=== PATIENT | female | born 1995 | race Caucasian/White ===

== ENCOUNTER 2020-04-17 16:24 | Emergency (ER) | payer OTHER, SELFPAY ==
[2020-04-17 16:37] VITALS: BP 145/77; PULSE 95; RESP 20; TEMP 37.2; O2SAT 97; BMI 35.4
--- NOTE | 2020-04-17 17:57 | ECG_ITS ---
Test Reason : [id number] Blood Pressure : / mmHG Vent. Rate : 083 BPM Atrial Rate : 083 BPM P-R Int : 162 ms QRS Dur : 090 ms QT Int : 374 ms P-R-T Axes : 068 048 039 degrees QTc Int : 439 ms Normal sinus rhythm Normal ECG No previous ECGs available Referred By: Trina Fontenot Electronically Signed By:RENATO DASH
--- NOTE | 2020-04-17 17:57 | XR_ITS ---
EXAMINATION: XR CHEST CLINICAL INFORMATION: Chest pain. Shortness of breath. Covid positive. COMPARISON: None TECHNIQUE: Frontal view of the chest was obtained. FINDINGS: No significant abnormality is noted involving the heart, lungs, mediastinum, bony thorax or soft tissues. The lungs are clear with no focal consolidation or other abnormality demonstrated. XR/XR chest 1V IMPRESSION: Unremarkable examination.
[2020-04-17 18:00] VITALS: BP 138/68; PULSE 88; RESP 16; TEMP 37.2; O2SAT 99
--- NOTE | 2020-04-17 18:11 | ED.URI ---
HPI - URI/Sore Throat General Chief Complaint: Upper Respiratory Symptoms Stated Complaint: CHEST PAIN Time Seen by Provider: 04/17/20 17:57 Source: patient Mode of arrival: ambulatory History of Present Illness HPI Narrative: 24-year-old female with a past medical history of asthma, COVID-19 positive last week, presenting to the ED complaining of worsening SOB, dry cough, and chest pressure since Tuesday. Also reports diarrhea, decreased p.o. intake, and low grade fevers. denies abd pain, N/V, recent travel, sore throat. MD elicited complaint: fever and cough Related Data Previous Rx's Medication Instructions Recorded albuterol sulfate 2 puff INHALATION Q4-6H PRN #6.7 g 04/17/20 azithromycin See Rx Instructions .ROUTE 04/17/20 .COMPLEX #6 tab Allergies Allergy/AdvReac Type Severity Reaction Status Date / Time No Known Allergies Allergy Verified 04/17/20 16:40 [No Known Allergies*] Review of Systems Review of Systems: Constitutional: No Weight loss, No Fever, No Chills ENT/Mouth: No Ear Pain, No Nasal Congestion, No Sinus Pain, No Hoarseness, No sore throat, No Rhinorrhea Cardiovascular: + Chest Pain, + SOB, + Dyspnea on Exertion, No Orthopnea, No Edema, No Palpitations Respiratory: + Cough, No Sputum, No Wheezing Gastrointestinal: No Nausea, No Vomiting, + Diarrhea, No Constipation, No Abdominal pain Genitourinary: No irregular bleeding, No Dysuria, No Urinary Frequency, No Hematuria Musculoskeletal: No joint pain, + Myalgias, No Joint Swelling Skin: No Skin Lesions, No rash Yes all other systems are reviewed and are negative [facility] Past Medical History Attestation statement: The following information was validated with the patient. Social History Social History Alcohol intake: current Alcohol intake frequency: holidays/special occasions only Smoking Status: Never smoker Use of substances other than those prescribed or required for medical reasons: No Advance Directives: No Advance Directives Information Provided: No Physical Exam Vital Signs: Vital Signs: Last Vital Signs Temp 98.9 F 04/17/20 18:00 Pulse 88 04/17/20 18:00 Resp 16 04/17/20 18:00 BP 138/68 04/17/20 18:00 Pulse Ox 99 04/17/20 18:00 Body Mass Index 35.4 Const: General: cooperative and healthy appearing Orientation/consciousness: patient oriented x3 Limitations: no limitations HENMT: Head: Yes normal to inspection Ears: hearing grossly normal bilaterally General nose exam: Normal external nose present Face and sinus: Yes normal facial exam Eyes: General: appearance normal, both eyes and all related structures EOM: EOMs intact bilaterally Neck: Neck: Yes normal visual inspection and Yes no meningeal signs Resp: Effort & Inspection: normal respiratory effort Auscultation: clear to auscultation bilaterally, no rales, no rhonchi and no wheezes Cardio: Rate: regular rate Heart sounds: S1 normal heart sound present and S2 normal heart sound present GI: Inspection: Yes normal to inspection Palpation (GI): Soft to palpation and nontender Skin: Rashes: no rashes Wounds: no wounds Neuro: General: patient oriented x3 and no meningeal signs Gait exam (Neuro): Normal gait present Extrem: Other: No LE edema or calf tenderness General: Yes normal to inspection Course Course Course Narrative: AST/ALT mildly elevated troponin negative, labs unremarkable CXR unremarkable MDM - URI/Sore Throat MDM Narrative Medical decision making narrative: 24-year-old female with a past medical history of asthma, COVID-19 + last week, presenting to the ED complaining of worsening SOB, dry cough, and chest pressure since Tuesday. On exam VSS, NAD/well-appearing, lungs CTA, no LE edema or calf tenderness. Concern for COVID-19/viral pneumonia vs ACS. Lower concern for PE without hypoxia or tachycardia. Plan: EKG, Labs, CXR, Albuterol, reassess Lab Data Attestation: I reviewed the patient's lab results. Result diagrams: 04/17/20 18:14 04/17/20 18:14 Labs: Lab Results 04/17/20 04/17/20 04/17/20 Range/Units 18:14 18:14 18:14 WBC 6.1 (4.8-10.8) X10*3/uL RBC 4.79 (4.20-5.50) X10*6/uL Hgb 13.0 (12.0-16.0) g/dl Hct 40.2 (37-47) % MCV 83.9 (80-98) fL MCH 27.1 (27.0-33.0) pg MCHC 32.3 (31.0-35.0) g/dl RDW 12.8 (11.0-16.0) % Plt Count 228 (160-400) X10*3/uL MPV 10.6 (9.4-12.3) fL Immature Gran % (Auto) 0.2 (0.0-0.4) % Neut % (Auto) 49.3 (45-73) % Lymph % (Auto) 40.6 H (20-40) % [place] % (Auto) 6.4 (2-11) % Eos % (Auto) 3.0 (0-4) % Baso % (Auto) 0.5 (0-2) % Lymph # (Auto) 2.5 (1.2-4.9) X10*3/uL [place] # (Auto) 0.4 (0.1-1.2) X10*3/uL Eos # (Auto) 0.2 (0.0-0.4) X10*3/uL Baso # (Auto) 0.0 (0.0-0.2) X10*3/uL Abs Immat Gran (auto) 0.01 (0.00-0.03) X10*3/uL Absolute Neuts (auto) 3.0 (2.0-8.3) X10*3/uL Absolute Nucleated RBC 0.000 (0.0-0.012) X10*3/uL Nucleated RBC % (auto) 0.0 (0.0-0.2) /100WBC Hold Blue Top SEE NOTE Sodium 139 (135-145) mmol/L Potassium 4.3 (3.3-5.1) mmol/l Chloride 102 (96-108) mmol/L Carbon Dioxide 29 (22-29) mmol/L Anion Gap 12 (12-20) BUN 8 L (9-16) mg/dL Creatinine 0.72 (0.5-1.4) mg/dL Estim Creat Clear Calc 127.7 Estimated GFR > 60 Random Glucose 130 H (60-115) mg/dL Calcium 9.1 (8.4-10.2) mg/dL Magnesium 1.8 (1.6-2.6) mg/dL Ferritin (10-122) ng/mL Total Bilirubin 0.2 (0.0-1.0) mg/dL Direct Bilirubin < 0.2 (0.0-0.5) mg/dL AST 34 H (5-31) U/L ALT 50 H (0-31) U/L Alkaline Phosphatase 57 (39-117) U/L Lactate Dehydrogenase (122-220) U/L Troponin I High Sens (<3.5-17.0) ng/L C-Reactive Protein (< or = 0.50) mg/dL B-Natriuretic Peptide (<100) pg/mL Total Protein 7.8 (6.5-8.0) g/dL Albumin 4.4 (3.5-5.0) g/dL Procalcitonin ng/mL 04/17/20 04/17/20 04/17/20 Range/Units 18:14 18:14 18:14 WBC (4.8-10.8) X10*3/uL RBC (4.20-5.50) X10*6/uL Hgb (12.0-16.0) g/dl Hct (37-47) % MCV (80-98) fL MCH (27.0-33.0) pg MCHC (31.0-35.0) g/dl RDW (11.0-16.0) % Plt Count (160-400) X10*3/uL MPV (9.4-12.3) fL Immature Gran % (Auto) (0.0-0.4) % Neut % (Auto) (45-73) % Lymph % (Auto) (20-40) % [place] % (Auto) (2-11) % Eos % (Auto) (0-4) % Baso % (Auto) (0-2) % Lymph # (Auto) (1.2-4.9) X10*3/uL [place] # (Auto) (0.1-1.2) X10*3/uL Eos # (Auto) (0.0-0.4) X10*3/uL Baso # (Auto) (0.0-0.2) X10*3/uL Abs Immat Gran (auto) (0.00-0.03) X10*3/uL Absolute Neuts (auto) (2.0-8.3) X10*3/uL Absolute Nucleated RBC (0.0-0.012) X10*3/uL Nucleated RBC % (auto) (0.0-0.2) /100WBC Hold Blue Top Sodium (135-145) mmol/L Potassium (3.3-5.1) mmol/l Chloride (96-108) mmol/L Carbon Dioxide (22-29) mmol/L Anion Gap (12-20) BUN (9-16) mg/dL Creatinine (0.5-1.4) mg/dL Estim Creat Clear Calc Estimated GFR Random Glucose (60-115) mg/dL Calcium (8.4-10.2) mg/dL Magnesium (1.6-2.6) mg/dL Ferritin 53 (10-122) ng/mL Total Bilirubin (0.0-1.0) mg/dL Direct Bilirubin (0.0-0.5) mg/dL AST (5-31) U/L ALT (0-31) U/L Alkaline Phosphatase (39-117) U/L Lactate Dehydrogenase 178 (122-220) U/L Troponin I High Sens < 3.5 (<3.5-17.0) ng/L C-Reactive Protein 0.44 (< or = 0.50) mg/dL B-Natriuretic Peptide < 10 (<100) pg/mL Total Protein (6.5-8.0) g/dL Albumin (3.5-5.0) g/dL Procalcitonin ng/mL 04/17/20 Range/Units 18:14 WBC (4.8-10.8) X10*3/uL RBC (4.20-5.50) X10*6/uL Hgb (12.0-16.0) g/dl Hct (37-47) % MCV (80-98) fL MCH (27.0-33.0) pg MCHC (31.0-35.0) g/dl RDW (11.0-16.0) % Plt Count (160-400) X10*3/uL MPV (9.4-12.3) fL Immature Gran % (Auto) (0.0-0.4) % Neut % (Auto) (45-73) % Lymph % (Auto) (20-40) % [place] % (Auto) (2-11) % Eos % (Auto) (0-4) % Baso % (Auto) (0-2) % Lymph # (Auto) (1.2-4.9) X10*3/uL [place] # (Auto) (0.1-1.2) X10*3/uL Eos # (Auto) (0.0-0.4) X10*3/uL Baso # (Auto) (0.0-0.2) X10*3/uL Abs Immat Gran (auto) (0.00-0.03) X10*3/uL Absolute Neuts (auto) (2.0-8.3) X10*3/uL Absolute Nucleated RBC (0.0-0.012) X10*3/uL Nucleated RBC % (auto) (0.0-0.2) /100WBC Hold Blue Top Sodium (135-145) mmol/L Potassium (3.3-5.1) mmol/l Chloride (96-108) mmol/L Carbon Dioxide (22-29) mmol/L Anion Gap (12-20) BUN (9-16) mg/dL Creatinine (0.5-1.4) mg/dL Estim Creat Clear Calc Estimated GFR Random Glucose (60-115) mg/dL Calcium (8.4-10.2) mg/dL Magnesium (1.6-2.6) mg/dL Ferritin (10-122) ng/mL Total Bilirubin (0.0-1.0) mg/dL Direct Bilirubin (0.0-0.5) mg/dL AST (5-31) U/L ALT (0-31) U/L Alkaline Phosphatase (39-117) U/L Lactate Dehydrogenase (122-220) U/L Troponin I High Sens (<3.5-17.0) ng/L C-Reactive Protein (< or = 0.50) mg/dL B-Natriuretic Peptide (<100) pg/mL Total Protein (6.5-8.0) g/dL Albumin (3.5-5.0) g/dL Procalcitonin 0.02 ng/mL Discharge Plan Discharge Clinical Impression: COVID-19 Patient Disposition: Home, Self-Care Instructions: COVID-19 (Coronavirus Disease 2019) (ED) Additional Instructions: Your blood work and chest x-ray were reassuring today in the ED Is otherwise in his antibiotic, take as prescribed Use albuterol inhaler as prescribed Call your doctor If you develop constant worsening chest pain, shortness of breath, or high fevers unresolved with Tylenol at home return to the ED CDC Guidelines for home isolation: - Stay away from others - WEAR A MASK if you are sick AND STAY HOME - Cover your mouth and nose with a tissue when you cough or sneeze. Dispose of tissues in a lined trash can and wash your hands immediately with soap and water for at least 20 seconds. If soap and water are not available, clean hands with alcohol-based hand emergency room physician that contains at least 60% alcohol. - Clean your hands often with soap and water for at least 20 seconds - Avoid touching your eyes, nose and mouth with unwashed hands - Do not share dishes, drinking glasses, cups, eating utensils, towels, or bedding with other people in your home. After using these items, wash them thoroughly with soap and water or put in the esthetician/spa coordinator. - Clean high-touch surfaces in your isolation area ( sick room and bathroom) every day; let a caregiver clean and disinfect high-touch surfaces in other areas of the home. Clean the area or item with soap and water or another detergent if it is dirty. Then, use a household disinfectant. - Limit contact with pets and animals: If you must care for a pet, wash your hands before and after interacting with them) Prescriptions: New albuterol sulfate 90 mcg/actuation HFA aerosol inhaler 2 puff inhalation Q4-6H PRN (Reason: shortness of breath or wheezing) Qty: 6.7 RF: 0 azithromycin 250 mg tablet See Rx Instructions .ROUTE .COMPLEX Qty: 6 RF: 0 Referrals: Gamaliel Raya MD [Primary Care Provider] - 2 days
[2020-04-17 18:38] LABS: Basophils Percent Auto 0.5 % (0-2); Eosinophils Absolute Auto 0.2 X10*3/uL (0.0-0.4); Hematocrit 40.2 % (37-47); Imm Gran Abs Auto 0.01 X10*3/uL (0.00-0.03); Imm Gran Pct Auto 0.2 % (0.0-0.4); Lymphocytes Absolute Auto 2.5 X10*3/uL (1.2-4.9); Lymphocytes Percent Auto 40.6 % (20-40); MANUAL DIFF FLAG NO; Mean Corpuscular HGB Conc 32.3 g/dl (31.0-35.0); Mean Corpuscular Hemoglobin 27.1 pg (27.0-33.0); Mean Corpuscular Volume 83.9 fL (80-98); Mean Platelet Volume 10.6 fL (9.4-12.3); Monocytes Absolute Auto 0.4 X10*3/uL (0.1-1.2); Monocytes Percent Auto 6.4 % (2-11); Neutrophils Percent Auto 49.3 % (45-73); Platelet Count 228 X10*3/uL (160-400); Red Blood Count 4.79 X10*6/uL (4.20-5.50); Red Cell Distribution Width 12.8 % (11.0-16.0); White Blood Count 6.1 X10*3/uL (4.8-10.8)
[2020-04-17] MEDS: Albuterol Sulfate 90 MCG 8 GM INHALER 4 PUFF INHALE (18:42)
--- NOTE | 2020-04-17 18:45 | PC.NURSE ---
pt states she has HX of asthma and has used inhalers in the past. She was able to use the inhaler with spacer with good inspiratory effort, though is coughing after use. Will continue to monitor
[2020-04-17 19:03] LABS: C Reactive Protein 0.44 mg/dL (< or = 0.50); Lactate Dehydrogenase 178 U/L (122-220)
[2020-04-17 19:04] LABS: Alanine Aminotransferase 50 U/L (0-31); Albumin Level 4.4 g/dL (3.5-5.0); Alkaline Phosphatase 57 U/L (39-117); Anion Gap 12 (12-20); Aspartate Amino Transferase 34 U/L (5-31); Bilirubin Direct < 0.2 mg/dL (0.0-0.5); Bilirubin Total 0.2 mg/dL (0.0-1.0); Blood Urea Nitrogen 8 mg/dL (9-16); Calcium 9.1 mg/dL (8.4-10.2); Carbon Dioxide 29 mmol/L (22-29); Chloride 102 mmol/L (96-108); Creatinine Clr Calc Pharmacy 127.7; Estimated Glomerular Filt Rate > 60; Glucose Random 130 mg/dL (60-115); Magnesium 1.8 mg/dL (1.6-2.6); Potassium 4.3 mmol/l (3.3-5.1); Sodium 139 mmol/L (135-145); Total Protein 7.8 g/dL (6.5-8.0)
[2020-04-17 19:08] LABS: B Type Natriuretic Peptide < 10 pg/mL (<100); Troponin-I High Sensitivity < 3.5 ng/L (<3.5-17.0)
[2020-04-17 19:22] LABS: Procalcitonin 0.02 ng/mL
[2020-04-17 19:25] LABS: Ferritin 53 ng/mL (10-122)
== END 2020-04-17 20:00 | disposition home or self-care (01) ==
PROVIDERS: Physician Assistant; Emergency Provider Emergency Medicine; PCP Internal Medicine
DX: U07.1 COVID-19 (principal); R07.89 Other chest pain; R05 Cough
CPT/HCPCS: 36415; 71045; 80048; 80076; 82728; 83615; 83735; 83880; 84145; 84484; 85025; 86140; 93005; 99284

== ENCOUNTER 2021-04-27 14:41 | Emergency (ER) | payer SELFPAY ==
--- NOTE | ~2021-04-27 | CT_ITS ---
EXAMINATION: CT HEAD WITHOUT CONTRAST CLINICAL INFORMATION: Facial numbness COMPARISON: None TECHNIQUE: Contiguous axial imaging was performed from the skull base to vertex without intravenous administration of contrast. This CT examination was performed using dose optimization techniques as appropriate, variously including the following: *Automated exposure control *Adjustment of mA and/or kV according to patient size (this includes techniques or standardized protocols for targeted exams where dose is matched to indication/reason for exam; i.e. extremities or head) *Use of iterative reconstruction technique DLP: 677 mGy-cm FINDINGS: There is no evidence of acute intracranial hemorrhage or territorial infarction. No abnormal mass effect or midline shift is seen. [place] to white matter differentiation is well preserved. No extra-axial fluid collections are identified. The ventricles are normal in size. There is no abnormal attenuation within the brain parenchyma. The osseous structures and soft tissues are normal. There is diffuse mucoperiosteal thickening bilateral ethmoid, sphenoid, right frontal and maxillary sinuses. The mastoid sinuses appears clear. CT/CT head/brain wo con IMPRESSION: No acute intracranial process seen. Chronic pansinusitis.
[2021-04-27 15:19] VITALS: BP 138/94; PULSE 89; RESP 20; TEMP 36.9; O2SAT 100; BMI 37.2
[2021-04-27 17:21] LABS: MANUAL DIFF FLAG NO
[2021-04-27 17:24] LABS: Basophils Percent Auto 0.3 % (0-2); Eosinophils Absolute Auto 0.2 X10*3/uL (0.0-0.4); Hematocrit 38.6 % (37.0-47.0); Hemoglobin 12.1 g/dl (12.0-16.0); Imm Gran Abs Auto 0.04 X10*3/uL (0.00-0.03); Imm Gran Pct Auto 0.3 % (0.0-0.4); Lymphocytes Absolute Auto 2.8 X10*3/uL (1.2-4.9); Lymphocytes Percent Auto 22.8 % (20-40); Mean Corpuscular HGB Conc 31.3 g/dl (31.0-35.0); Mean Corpuscular Hemoglobin 26.9 pg (27.0-33.0); Mean Corpuscular Volume 85.8 fL (80.0-98.0); Mean Platelet Volume 9.8 fL (9.4-12.3); Monocytes Absolute Auto 0.6 X10*3/uL (0.1-1.2); Monocytes Percent Auto 4.5 % (2-11); Neutrophils Absolute Auto 8.6 x10*3/uL (2.0-8.3); Neutrophils Percent Auto 70.1 % (45-73); Platelet Count 370 X10*3/uL (160-400); White Blood Count 12.3 X10*3/uL (4.8-10.8)
[2021-04-27 17:28] LABS: INTERNATIONAL NORM RATIO 1.2 (0.9-1.1); Prothrombin Time 13.7 SEC (9.9-13.0)
[2021-04-27 17:48] LABS: Anion Gap 11 (12-20); Blood Urea Nitrogen 11 mg/dL (9-16); Calcium 10.1 mg/dL (8.4-10.2); Carbon Dioxide 28 mmol/L (22-29); Chloride 104 mmol/L (96-108); Creatinine Clr Calc Pharmacy 121.5; Estimated Glomerular Filt Rate > 60; Glucose Random 100 mg/dL (60-115); Potassium 4.1 mmol/L (3.3-5.1); Sodium 139 mmol/L (135-145)
[2021-04-27 17:50] LABS: Alanine Aminotransferase 25 U/L (0-31); Albumin Level 4.5 g/dL (3.5-5.0); Alkaline Phosphatase 59 U/L (39-117); Aspartate Amino Transferase 19 U/L (5-31); Bilirubin Direct 0.2 mg/dL (0.0-0.5); Bilirubin Total 0.4 mg/dL (0.0-1.0)
[2021-04-27 18:27] LABS: COVID-19 Test Negative (Negative)
[2021-04-27 23:21] LABS: C Reactive Protein 2.17 mg/dL (< or = 0.50)
--- NOTE | 2021-04-27 23:58 | ED_ITS ---
HPI - Neuro Symptoms/Deficit General Chief Complaint: Neuro Symptoms/Deficit Stated Complaint: signs of stroke Time Seen by Provider: 04/27/21 23:03 Related Data Previous Rx's Medication Instructions Recorded albuterol sulfate 90 mcg/actuation 2 puff INHALATION Q4-6H PRN #6.7 g 04/17/20 aerosol inhaler azithromycin 250 mg tablet See Rx Instructions .ROUTE 04/17/20 .COMPLEX #6 tab prednisone 20 mg tablet 60 mg PO DAILY 6 Days #18 tab 04/28/21 Allergies Allergy/AdvReac Type Severity Reaction Status Date / Time No Known Allergies Allergy Verified 04/17/20 16:40 [No Known Allergies*] [facility] Past Medical History Medical History (Updated 04/28/21 @ 00:03 by Carrie Chin MD) Asthma History of prediabetes PCOS (polycystic ovarian syndrome) Surgical History (Updated 04/27/21 @ 15:24 by Alice Huerta) No pertinent past surgical history Social History Social History Alcohol intake: current Alcohol intake frequency: holidays/special occasions only Advance Directives: No Patient : No Physical Exam Vital Signs: Vital Signs: Last Vital Signs Temp 98.5 F 04/27/21 15:19 Pulse 89 04/27/21 15:19 Resp 20 04/27/21 15:19 BP 138/94 H 04/27/21 15:19 Pulse Ox 100 04/27/21 15:19 BMI result Body Mass Index 37.2 MDM - Neuro Symptoms/Deficit Lab Data Result diagrams: 04/27/21 17:11 04/27/21 17:11 Labs: Lab Results 04/27/21 04/27/21 04/27/21 Range/Units 17:01 17:11 17:11 WBC 12.3 H (4.8-10.8) X10*3/uL RBC 4.50 (4.20-5.50) X10*6/uL Hgb 12.1 (12.0-16.0) g/dl Hct 38.6 (37.0-47.0) % MCV 85.8 (80.0-98.0) fL MCH 26.9 L (27.0-33.0) pg MCHC 31.3 (31.0-35.0) g/dl RDW 13.0 (11.0-16.0) % Plt Count 370 (160-400) X10*3/uL MPV 9.8 (9.4-12.3) fL Immature Gran % (Auto) 0.3 (0.0-0.4) % Neut % (Auto) 70.1 (45-73) % Lymph % (Auto) 22.8 (20-40) % [place] % (Auto) 4.5 (2-11) % Eos % (Auto) 2.0 (0-4) % Baso % (Auto) 0.3 (0-2) % Lymph # (Auto) 2.8 (1.2-4.9) X10*3/uL [place] # (Auto) 0.6 (0.1-1.2) X10*3/uL Eos # (Auto) 0.2 (0.0-0.4) X10*3/uL Baso # (Auto) 0.0 (0.0-0.2) X10*3/uL Abs Immat Gran (auto) 0.04 H (0.00-0.03) X10*3/uL Absolute Neuts (auto) 8.6 H (2.0-8.3) x10*3/uL Absolute Nucleated RBC 0.000 (0.0-0.012) X10*3/uL Nucleated RBC % (auto) 0.0 (0.0-0.2) /100WBC PT 13.7 H (9.9-13.0) SEC INR 1.2 H (0.9-1.1) Sodium (135-145) mmol/L Potassium (3.3-5.1) mmol/L Chloride (96-108) mmol/L Carbon Dioxide (22-29) mmol/L Anion Gap (12-20) BUN (9-16) mg/dL Creatinine (0.5-1.4) mg/dL Estim Creat Clear Calc Estimated GFR Random Glucose (60-115) mg/dL Calcium (8.4-10.2) mg/dL Total Bilirubin (0.0-1.0) mg/dL Direct Bilirubin (0.0-0.5) mg/dL AST (5-31) U/L ALT (0-31) U/L Alkaline Phosphatase (39-117) U/L C-Reactive Protein (< or = 0.50) mg/dL Total Protein (6.5-8.0) g/dL Albumin (3.5-5.0) g/dL COVID-19 (ZAINAB) Negative (Negative) COVID-19 Clin Com See Note 04/27/21 04/27/21 Range/Units 17:11 17:11 WBC (4.8-10.8) X10*3/uL RBC (4.20-5.50) X10*6/uL Hgb (12.0-16.0) g/dl Hct (37.0-47.0) % MCV (80.0-98.0) fL MCH (27.0-33.0) pg MCHC (31.0-35.0) g/dl RDW (11.0-16.0) % Plt Count (160-400) X10*3/uL MPV (9.4-12.3) fL Immature Gran % (Auto) (0.0-0.4) % Neut % (Auto) (45-73) % Lymph % (Auto) (20-40) % [place] % (Auto) (2-11) % Eos % (Auto) (0-4) % Baso % (Auto) (0-2) % Lymph # (Auto) (1.2-4.9) X10*3/uL [place] # (Auto) (0.1-1.2) X10*3/uL Eos # (Auto) (0.0-0.4) X10*3/uL Baso # (Auto) (0.0-0.2) X10*3/uL Abs Immat Gran (auto) (0.00-0.03) X10*3/uL Absolute Neuts (auto) (2.0-8.3) x10*3/uL Absolute Nucleated RBC (0.0-0.012) X10*3/uL Nucleated RBC % (auto) (0.0-0.2) /100WBC PT (9.9-13.0) SEC INR (0.9-1.1) Sodium 139 (135-145) mmol/L Potassium 4.1 (3.3-5.1) mmol/L Chloride 104 (96-108) mmol/L Carbon Dioxide 28 (22-29) mmol/L Anion Gap 11 L (12-20) BUN 11 (9-16) mg/dL Creatinine 0.77 (0.5-1.4) mg/dL Estim Creat Clear Calc 121.5 Estimated GFR > 60 Random Glucose 100 (60-115) mg/dL Calcium 10.1 D (8.4-10.2) mg/dL Total Bilirubin 0.4 (0.0-1.0) mg/dL Direct Bilirubin 0.2 (0.0-0.5) mg/dL AST 19 D (5-31) U/L ALT 25 (0-31) U/L Alkaline Phosphatase 59 (39-117) U/L C-Reactive Protein 2.17 H (< or = 0.50) mg/dL Total Protein 8.0 (6.5-8.0) g/dL Albumin 4.5 (3.5-5.0) g/dL COVID-19 (ZAINAB) (Negative) COVID-19 Clin Com Discharge Plan Discharge Clinical Impression: Borrego's palsy Patient Disposition: Home, Self-Care Instructions: Borrego Palsy (ED) Additional Instructions: Eye protection - artificial tears qhr while you are awake, these are available [id number]. - ophthalmic ointment at night (can be bacitracin) - your eye should be taped shut at night - wear protective goggles (as your I will likely not be able to shot in response to foreign substance) Follow-up with an body straightener as well as your primary care provider in the next 1-2 days for re-evaluation and further outpatient management. Prescriptions: New prednisone 20 mg tablet 60 mg PO DAILY 6 Days Qty: 18 RF: 0 No Action albuterol sulfate 90 mcg/actuation HFA aerosol inhaler 2 puff inhalation Q4-6H PRN (Reason: shortness of breath or wheezing) Qty: 6.7 RF: 0 azithromycin 250 mg tablet See Rx Instructions .ROUTE .COMPLEX Qty: 6 RF: 0 Referrals: Amos Moise [Physician] - 2 days
[2021-04-28] MEDS: Acetaminophen 325 MG TABLET 975 MG PO (00:24)
[2021-04-28] MEDS: predniSONE 20 MG TABLET 60 MG PO (00:25)
[2021-04-28 00:26] VITALS: BP 136/81; PULSE 77; RESP 16; O2SAT 98
== END 2021-04-28 00:32 | disposition home or self-care (01) ==
PROVIDERS: Emergency Provider Student in an Organized Health Care Education/Training Program
DX: G51.0 Bell's palsy (principal); Z20.822 Contact with and (suspected) exposure to COVID-19
CPT/HCPCS: 36415; 70450; 80048; 80076; 85025; 85610; 86140; 87635; 99283; 99284

== ENCOUNTER 2024-11-26 08:17 | Emergency (ER) | payer BC, SELFPAY ==
[2024-11-26 08:41] VITALS: BP 130/65; PULSE 89; RESP 16; TEMP 36.9; O2SAT 98; BMI 38.6
--- NOTE | 2024-11-26 09:34 | ED_ITS ---
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 She reports feeling dehydrated and lightheaded when standing. Pain is described as a diffuse aching that has been progressively worsening. She notes chronic light sensitivity and eye pain over the past few years, which have not been formally evaluated by neurology but has been referred to by her primary care provider. Tylenol has provided some relief of joint pain; she has not tried ibuprofen. Symptoms are worse when getting up. No radiation of pain reported. No recent travel or sick contacts. She denies cough, shortness of breath, chest pain, abdominal pain, nausea, vomiting, dysuria, or rash. She did have diarrhea last week that has since resolved. Onset (ago): day(s) (3) Quality: aching Pain Consistency: constant Associated symptoms: fever/chills, headaches and weakness Related Data Previous Rx's ?Medication ?Instructions ?Recorded albuterol sulfate 90 mcg/actuation 2 puff inhalation Q 4-6H PRN 04/17/20 aerosol inhaler shortness of breath or wheez ing #6.7 grams azithromycin 250 mg tablet See Rx Instructions PO .COM PLEX #6 04/17/20 tabs prednisone 20 mg tablet 60 mg (3 x 20 mg) PO DAILY 6 days 04/28/21 #18 tabs Allergies Allergy/AdvReac Type Severity Reaction Status Date / Time No Known Allergies (No Known Allergy Verified 11/26/24 08:43 Allergies*) Review of Systems 2 Constitutional: Constitutional: Reports no additional constitutional complaints, Reports body ache(s), Reports chills, Reports fever(s), Reports headache(s) and Reports night sweats Eyes: Eyes: Denies blurry vision, Denies change in vision, Denies diplopia, Denies eye discharge, Denies loss of vision, Reports eye pain (pressure behind eyes) and Reports photophobia ENT: Denies dizziness and Reports headache(s) Cardiovascular: Cardiovascular: Reports no additional cardiovascular complaints, Denies chest pain, Reports lightheadedness (upon standing), Denies Loss of Consciousness and Denies dyspnea Respiratory: Respiratory: Reports no additional respiratory complaints and Denies dyspnea Gastrointestinal: Gastrointestinal: Reports no additional gastrointestinal complaints, Denies abdominal pain and Reports diarrhea (resolved last week) Genitourinary: Genitourinary: Denies hematuria, Denies urinary frequency, Denies dysuria, Denies urinary incontinence, Denies urinary hesitancy and Denies urinary urgency Musculoskeletal: Musculoskeletal: Reports no additional musculoskeletal complaints, Denies numbness and Denies tingling Neurologic: Denies dizziness, Reports headache(s), Denies loss of vision, Denies numbness and Denies tingling Psychiatric: Psychiatric: Reports no additional psychiatric complaints Endocrine: Endocrine: Reports no additional endocrine complaints Hematologic/Lymphatic: Hematologic/Lymphatic: Reports no additional hematologic/lymphatic complaints Allergic/Immunologic: Allergic/Immunologic: Reports no additional allergic/immunologic complaints PMFSH Past Medical History Attestation statement: The following information was validated with the patient. Source: old records reviewed and nursing notes reviewed Medical History Asthma History of prediabetes PCOS (polycystic ovarian syndrome) Surgical History No pertinent past surgical history Social History Social History Alcohol intake: current Alcohol intake frequency: holidays/special occasions only Advance Directives: No Advance Directives Information Provided: No Do you have a plan to hurt others: No Plan Physical Exam ED Vital Signs: Vital Signs - 24 hr 11/26/24 08:41 11/26/24 10:17 11/26/24 11:45 Temperature 98.4 F Pulse Rate 89 82 82 Respiratory Rate 16 15 14 Blood Pressure 130/65 114/69 120/68 Pulse Oximetry 98 98 99 Oxygen Delivery Method Room Air Room Air Room Air 11/26/24 12:45 Temperature 98.5 F Pulse Rate 82 Respiratory Rate 14 Blood Pressure 120/68 Pulse Oximetry 99 Oxygen Delivery Method Room Air BMI result Body Mass Index 38.6 Const General: cooperative, no acute distress, alert and awake Nutritional Appearance: well nourished Orientation/consciousness: patient oriented x3 HENMT Head: Yes normal to inspection and Yes atraumatic Ears: hearing grossly normal bilaterally and external ears normal General nose exam: Normal external nose present, no nasal discharge noted and no epistaxis Face and sinus: Yes normal facial exam, No abrasion and No laceration Mouth: Normal oral and palatal mucosa present, no drooling and no muffled voice Eyes General: appearance normal, both eyes and all related structures Periorbital: periorbital findings normal Eyelids: Yes eyelids normal Conjunctivae: conjunctivae normal Pupils: Equal, round and reactive pupils present EOM: EOMs intact bilaterally Direct Ophthalmoscopy: photophobia Neck Neck: Yes normal visual inspection, Yes full ROM and Yes no meningeal signs (kernig and brudzinski sign negative ) Resp Effort & Inspection: normal respiratory effort and able to speak in complete sentences Auscultation: clear to auscultation bilaterally Cardio Rate: regular rate Rhythm: regular rhythm Neuro General: patient oriented x3, moves all extremities, no meningeal signs (kernig and brudzinski sign negative ) and CN's II-XI intact bilaterally Cranial nerves: Yes Equal, round and reactive pupils present Cognition (Neuro): normal cognition Extrem General: Yes normal to inspection, Yes full ROM and Yes capillary refill normal Psych Appearance: grossly normal Mental Status: mental status grossly normal Affect: normal affect Attitude: cooperative Thought process: Normal thought process present Thought content: Normal thought content present Insight: Good insight present (Psych) Medications Administered Discontinued Medications Generic Name Dose Route Start Last Admin Trade Name Freq PRN Reason Stop Dose Admin Diphenhydramine HCl 25 mg 11/26/24 10:25 11/26/24 11:13 Diphenhydramine Hcl 50 Mg/Ml Vial IVPUSH 11/26/24 10:26 25 mg ONCE ONE Administration Sodium Chloride 1,000 mls @ 999 mls/hr 11/26/24 10:30 11/26/24 12:41 Ns IV 11/26/24 11:30 Infused .Q1H1M NIKOLE Infusion Ketorolac Tromethamine 15 mg 11/26/24 10:25 11/26/24 11:14 Ketorolac Tromethamine 15 Mg/Ml Vial IVPUSH 11/26/24 10:26 15 mg ONCE ONE Administration Medical Decision Making Medical Decision Making MDM Narrative: Patient is a 28 year old assigned female at with a history of asthma, PCOS, and chronic light sensitivity presenting to the emergency department today feeling generally unwell. Patient's physical exam was unremarkable. Patient's blood work showed an elevated HCG of 30 but were otherwise unremarkable. Patient's clinical presentation is most consistent with a migraine complicated by a viral illness and possible . Patient has no clinical evidence of meningitis. Patient has no abdominal or vaginal complaints. I explained my physical exam findings as well as all test results to the patient. I answered all questions asked by the patient. I stressed the importance of the patient taking her medication as directed (either prescribed or as the over the counter packaging recommends). I stressed the importance of the patient following up with her primary care provider, neurologist, and OBGYN. I stressed the importance of the patient returning to the emergency department immediately if her symptoms were to worsen or if she were to develop any dizziness, shortness of breath, difficulty breathing, chest pain, blurry vision, loss of vision, nausea, vomiting, abdominal pain, fever, chills, back pain, or any other complaints. Patient verbalized agreement and understanding with this treatment plan and discharge. Differential Diagnosis Differential Diagnoses: The differential diagnosis associated with the presentation includes Viral illness Migraine headache Admission/Observation Consideration of admission/observation: Escalation of care including admission/observation considered Patient would have been admitted to the hospital had her work up had any findings where hospital admission was appropriate and her clinical presentation warranted hospital admission. Lab Data [facility] Lab Attestation statement: I reviewed the patient's lab results. My interpretation of these results are in the [facility] Rationale portion of this note. 11/26/24 11:24 11/26/24 11:24 Labs: Lab Results 11/26/24 11/26/24 Range/Units 08:50 11:24 WBC 7.5 (4.8-10.8) X10*3/uL RBC 4.52 (4.20-5.50) X10*6/uL Hgb 12.0 (12.0-16.0) g/dl Hct 36.8 L (37.0-47.0) % MCV 81.4 (80.0-98.0) fL MCH 26.5 L (27.0-33.0) pg MCHC 32.6 (31.0-35.0) g/dl RDW 13.3 (11.0-16.0) % Plt Count 263 D (160-400) X10*3/uL MPV 10.0 (9.4-12.3) fL Immature Gran % (Auto) 0.3 (0.0-0.4) % Neut % (Auto) 70.2 (45-73) % Lymph % (Auto) 18.8 L (20-40) % Edmunds % (Auto) 9.8 (2-11) % Eos % (Auto) 0.4 (0-4) % Baso % (Auto) 0.5 (0-2) % Lymph # (Auto) 1.4 (1.2-4.9) X10*3/uL Edmunds # (Auto) 0.7 (0.1-1.2) X10*3/uL Eos # (Auto) 0.0 (0.0-0.4) X10*3/uL Baso # (Auto) 0.0 (0.0-0.2) X10*3/uL Abs Immat Gran (auto) 0.02 (0.00-0.03) X10*3/uL Absolute Neuts (auto) 5.3 (2.0-8.3) x10*3/uL Absolute Nucleated RBC 0.000 (0.0-0.012) X10*3/uL Nucleated RBC % (auto) 0.0 (0.0-0.2) /100WBC Sodium 136 (135-145) mmol/L Potassium 3.8 (3.3-5.1) mmol/L Chloride 105 (96-108) mmol/L Carbon Dioxide 24 (22-29) mmol/L Anion Gap 11 L (12-20) BUN 9 (9-16) mg/dL Creatinine 0.68 (0.5-1.4) mg/dL Estim Creat Clear Calc 136.8 Estimated GFR > 60 Random Glucose 94 (60-115) mg/dL Calcium 8.1 L D (8.4-10.2) mg/dL Total Bilirubin 0.2 (0.0-1.0) mg/dL AST 28 (5-31) U/L ALT 26 (0-31) U/L Alkaline Phosphatase 45 (39-117) U/L Total Protein 7.0 (6.5-8.0) g/dL Albumin 4.1 (3.5-5.0) g/dL Beta HCG, Quant 30 mIU/mL Influenza Type A (PCR) NEGATIVE (Negative) Influenza Type B (PCR) NEGATIVE (Negative) RSV RNA Qual (PCR) NEGATIVE (Negative) SARS-CoV-2 RNA (RT-PCR) NEGATIVE (Negative) Discharge Plan Discharge Clinical Impression: Viral illness, Elevated serum hCG Migraine Qualifiers: Migraine type: unspecified Status migrainosus presence: without status migrainosus Intractability: intractable Qualified Code(s): G43.919 - Migraine, unspecified, intractable, without status migrainosus Patient Disposition: Home, Self-Care Instructions: (ED), Migraine Headache (ED), Viral Syndrome (ED) Additional Instructions: Your work up today was reassuring there is no EMERGENT process causing your symptoms. Garcia evaluaci?n de hoy fue tranquilizadora y le asegur? que no hay aplma?n proceso EMERGENTE que est? causando byron s?ntomas. As we discussed, your beta HCG level was slightly elevated at 30. While this can mean , it also may not be. Until this is confirmed by either your PCP or OBGYN provider, you should proceed as if you are and abstain from drugs / alcohol and take a vitamin. [place] comentamos, garcia nivel de beta-HCG estaba ligeramente elevado, en 30. Si jose esto puede indicar un embarazo, tambi?n podr?a no serlo. Hasta que garcia m?dico de cabecera o ginec?logo lo confirme, debe proceder cherise si estuviera embarazada, abstenerse de consumir drogas y alcohol, y sebastien vitaminas prenatales. IF you are prescribed home medications and/or you are taking over the counter medications at home- it is very important you continue to do so as prescribed / directed unless told otherwise. SI le recetan medicamentos y/o est? tomando medicamentos de venta ambrosio, es muy importante que contin?e haci?ndolo seg?n lo recetado/indicado a menos que le indiquen lo contrario. Follow up with your primary care provider. Return to the emergency department immediately if your symptoms worsen or if you develop any dizziness, shortness of breath, difficulty breathing, chest pain, blurry vision, loss of vision, nausea, vomiting, abdominal pain, fever, chills, back pain, or any other complaints. Amita?seguimiento?con garcia m?dico de atenci?n primaria. Acuda inmediatamente al servicio de urgencias si byron s?ntomas empeoran o si presenta falta de aliento, dificultad para respirar, dolor tor?cico, mareos, aturdimiento, dolor de espalda, dolor abdominal, fiebre, escalofr?os o cualquier otro s?ntoma. Please see the information below about our Patient Portal. If you are not yet enrolled in the [facility] Patient Portal, you will receive an enrollment email invitation following your visit to any [facility] Healthcare setting. You may also self-enroll in the Patient Portal by visiting our website: [email or web address] The following information is required to access the Patient Portal: - Your [facility] Medical Record Number - Your personal home email address (must match what is in your electronic medical record, Registration staff can assist with this) - Name - Date of Capabilities of the Patient Portal: - Message some providers - View upcoming appointments - Access your health summary, medical history, and visit history - View current conditions and allergies - View procedure and lab results - View your medications, including guidelines, side effects, and precautions - Complete pre-appointment questionnaires requested by your provider - Ready summary reports of your office visits and procedures To access the Patient Portal Mobile [employer], follow these directions: - Search [employer] in the [employer] Store or [employer] Store - Download the Fal[employer]i - Search for [facility] - Enter your login/password Portal del paciente Si usted no esta inscrito en el portal de pacientes de [facility], recibira shanna invitacion de inscripcion despues de garcia visita al [facility] o al [facility] via correo electronico. Tambien puede inscribirse voluntariamente en el portal de pacientes visitando nuestra pagina web: [email or web address] La siguiente informacion sera requerida para acceder al portal: - Garcia malgorzata de historia medica de [facility] - Garcia direccion de correo electronico personal - Nombre - Fecha de nacimiento Capacidades: Las siguientes capacidades estan disponibles en el portal de pacientes: - Enviar mensajes a algunos doctores - Verificar proximas citas - Acceso a garcia historial de atul, registro medico e historial de visitas - Nick las condiciones actuales y alergias nick procedimientos y resultados del laboratorio - Nick byron medicamentos, incluyendo las pautas - Efectos secundarios y precauciones - Completar o llenar formularios / cuestionarios de - Citas solicitadas por garcia doctor - Leer los resumenes de reportes medicos de byron visitas y procedimientos [place] acceder a la aplicacion movil: - Busque [employer] en la [employer] Store o [employer] Store - Descargue la aplicacion - [facility] - Ingrese garcia nombre de usuario / Contrasena Prescriptions: No Action albuterol sulfate 90 mcg/actuation HFA aerosol inhaler 2 puff inhalation Q4-6H PRN (Reason: shortness of breath or wheezing) Qty: 6.7 0RF azithromycin 250 mg tablet See Rx Instructions .ROUTE .COMPLEX Qty: 6 0RF Rx Instructions: take 500 mg today (day 1), then 250 mg for 4 days (days 2-5) prednisone 20 mg tablet 60 mg PO DAILY 6 Days Qty: 18 0RF Referrals: [place] [Primary Care Provider, Primary Care] Stand Alone Forms: Work/School Release Interventions: ED Discharge Assessment Last Done: 11/26/24 12:45 Discharge Date/Time: 11/26/24 12:45 Print Language: Cymro
[2024-11-26 09:45] LABS: Resp Syncy Virus RNA Qual PCR NEGATIVE (Negative); SARS COV2 PCR INHOUSE NEGATIVE (Negative)
[2024-11-26 10:17] VITALS: BP 114/69; PULSE 82; RESP 15; O2SAT 98
--- OUTSIDE RECORDS SUMMARY | 2024-11-26 11:08 | XMS_ITS | Clinical Summary ---
Author Organization [facility] [address] [place] [address] [place] [phone] Phone Care Team Providers Care Mill Washer Name Role Phone Unavailable Primary Care Provider Unavailabl e Allergies Active Allergy Reactions Criticality Noted Date Comments Other Medium 08/05/2023 Seasonal Medications PNV,calcium 42-ehth-rmahg acid ( Plus, calcium carb,) 27 mg iron- 1 mg tablet Take 1 Tablet by mouth daily. 08/05/2023 Active Active Problems Problem Noted Date Diagnosed Date Endometriosis 03/21/2024 PCOS (polycystic ovarian syndrome) 03/21/2024 Asthma due to environmental allergies 08/05/2023 Chronic neck and back pain 05/02/2018 Intertrigo 05/02/2018 Macromastia 05/02/2018 Surgical History Surgery Date Site/Laterality Comments OTHER SURGICAL HISTORY PROCEDURE: DENIES PREVIOUS SURGERY Medical History Medical History Date Comments Otitis media 03-21-08 DX:Otitis media; COMMENT: (when in [place]) PCOS (polycystic ovarian syndrome) DX:PCOS (polycystic ovarian syndrome) Endometriosis DX:Endometriosis Family History Medical History Relation Name Comments Diabetes Father Relation Name Status Comments Father Alive Mother Alive Social History Tobacco Use Types Packs/Day Years Used Date Smoking Tobacco: Never Smokeless Tobacco: Never Alcohol Use Standard Drinks/Week Comments No 0 (1 standard drink = 0.6 oz pur e alcohol) Comments Unknown Sex and Gender Information Value Date Recorded Sex Assigned at Not on file Legal Sex Female 2:16 AM EST Gender Identity Not on file Sexual Orientation Not on file Obstetrics History Plan of Treatment Health Maintenance Due Date Last Done Comments DTaP,Tdap,and Td Vaccines (1 - Tdap) 2013 Hepatitis B Vaccines (1 of 3 - 19+ 3-dose series) 2013 Pneumococcal Vaccine: Pediat rics (0 to 5 Years) and At-Risk Patients (6 to 49 Years) (1 of 2 - PCV) 2013 Cervical Cancer Screening: P ap Smear 12/02/2015 Cholesterol Screening (Lipid Panel) 12/06/2023 HIV Screening 12/06/2023 Hepatitis C Screening 12/06/2023 Social Influencers of Health Screening 12/06/2023 COVID-19 Vaccine (1 - 2023-2 5 season) 2023 Depression Screening 04/18/2024 Influenza Vaccine (#1) 2024 HIB Vaccines Aged Out No longer eligi ble based on patient's age to complete this topic HPV Vaccines Aged Out No longer eligi ble based on patient's age to complete this topic Hepatitis A Vaccines Aged Out No long er eligible based on patient's age to complete this topic IPV Vaccines Aged Out No longer eligi ble based on patient's age to complete this topic MMR Vaccines Aged Out No longer eligi ble based on patient's age to complete this topic Meningococcal ACWY Vaccine Aged Out N o longer eligible based on patient's age to complete this topic Meningococcal B Vaccine Aged Out No l onger eligible based on patient's age to complete this topic RSV Immunization Patients Un eugenio 20 months Aged Out No longer eligible b ased on patient's age to complete this topic Varicella Vaccines Aged Out No longer eligible based on patient's age to complete this topic Insurance [facility]
--- OUTSIDE RECORDS SUMMARY | 2024-11-26 11:08 | XMS_ITS | Clinical Summary ---
Author Organization [facility] Address [address] [place] [address], [address] [place] [address] Care Team Providers Care Loan Closer Name Role Phone Unavailable Primary Care Provider Unavailabl e Allergies No known active allergies Medications naproxen (NAPROSYN) 500 MG tablet Take 1 tablet by mouth 2 times daily as needed for Pain 28 tablet 11/22/2021 Active Social History Tobacco Use Types Packs/Day Years Used Date Smoking Tobacco: Never Smokeless Tobacco: Never Tobacco Cessation:Counseling Given: Not Answered Alcohol Use Standard Drinks/Week Comments Yes 0 (1 standard drink = 0.6 oz pur e alcohol) AUDIT-C Answer Date Recorded Q1: How often do you have a drink containing alc ohol? Never 11/21/2021 Average Number of Drinks Not on file 022 Frequency of Binge Drinking Not on file 09/2021 Comments No Sex and Gender Information Value Date Recorded Sex Assigned at Not on file Legal Sex Female 6:50 PM EDT Gender Identity Not on file Sexual Orientation Not on file Last Filed Vital Signs Vital Sign Reading Time Taken Comments Blood Pressure 121/98 11/21/2021 11:46 PM EDT Pulse 85 11/21/2021 11:46 PM EDT Temperature 36.4 C (97.5 F) 11/21/2021 11:46 PM EDT Respiratory Rate 16 11/21/2021 11:46 PM EDT Oxygen Saturation 99% 11/21/2021 11:46 PM EDT Inhaled Oxygen Concentration - - Weight 90.7 kg (200 lb) 11/21/2021 11:46 PM EDT Height 160 cm (5' 3 ) 11/21/2021 11:46 PM EDT Body Mass Index 35.43 11/21/2021 11:46 PM EDT Plan of Treatment Health Maintenance Due Date Last Done Comments Depression Screen 2006 Varicella vaccine (1 of 2 - 13+ 2-dose series) 12/02/2007 HIV screen 2009 Hepatitis C screen 2012 DTaP/Tdap/Td vaccine (1 - Tdap) 2013 Hepatitis B vaccine (1 of 3 - 19+ 3-dose series) 2013 Pap smear 12/02/2015 COVID-19 Vaccine (1 - 2023-2 5 season) 2023 Flu vaccine (#1) 11/16/2024 HPV vaccine Aged Out No longer eligi ble based on patient's age to complete this topic Hepatitis A vaccine Aged Out No longe r eligible based on patient's age to complete this topic Hib vaccine Aged Out No longer eligi ble based on patient's age to complete this topic Meningococcal (ACWY) vaccine Aged Out No longer eligible based on patient's age to complete this topic Meningococcal B vaccine Aged Out No l onger eligible based on patient's age to complete this topic Pneumococcal 0-49 years Vaccine Aged Out No longer eligible based on patient's age to complete this topic Polio vaccine Aged Out No longer elig ible based on patient's age to complete this topic [place] [id number]
--- OUTSIDE RECORDS SUMMARY | 2024-11-26 11:09 | XMS_ITS | Clinical Summary ---
Author Organization [facility] Address [address] [place] [address] Care Team Providers Care Counselling Psychologist Name Role Phone Donta Everett MD Primary Care Provider [phone] Source Comments PLEASE NOTE, if this patient is a minor, it may be UNLAWFUL to discuss sensitive information that is contained in these records (such as FAMILY PLANNING, MENTAL HEALTH or SUBSTANCE ABUSE) with the minor patient's parent or other person without the patient's specific authorization.[facility] Allergies Active Allergy Reactions Criticality Noted Date Comments Metformin 09/18/2024 Seasonal Allergies Medium 08/05/2023 Medications tirzepatide, weight loss, (ZEPBOUND) 2.5 mg/0.5 mL pnijIndications: PCOS (polycystic ovarian syndrome),Predia betes,Class 2 severe obesity due to excess calories with serious comorbidity and body mass index (BMI) of 39.0 to 39.9 in adult ([facility]) Inject 2.5 mg into the skin once a week. 2 mL 5 Active tirzepatide, weight loss, (ZEPBOUND) 2.5 mg/0.5 mL pnijIndications: Class 3 severe obesity due to excess calories without serious comorbidity with body mass index (BMI) of 40.0 to 44.9 in adult ([facility]) Inject 2.5 mg into the skin once a week. 2 mL 5 11/15/19 25 Discontinu ed(Reorder (E-Cancel Not Sent)) Active Problems Problem Noted Date Diagnosed Date Family history of neoplasm of breast 09/18/2024 Prediabetes 05/06/2024 Seasonal allergies 05/04/2024 Class 3 severe obesity due t o excess calories without serious comorbidity with body mass index (BMI) of 40.0 to 44.9 in adult ([facility]) 05/04/2024 Facial numbness 05/04/2024 Overview (05/04/2024): Referred to Neurologist PCOS (polycystic ovarian syndrome) 05/04/2024 Overview (05/04/2024): Sees AUDIENCE COORDINATOR History of endometriosis 05/04/2024 Overview (05/04/2024): Sees AUDIENCE COORDINATOR Chronic neck and back pain 05/02/2018 Encounters Date Type Department Care Team Description 11/16/2024 2:20 PM EDT Telemedicine Visit [address] [phone] 11/14/2024 1:40 PM EDT Office Visit [address] [phone] Nuha Davis FNP 09/18/2024 11:20 AM EDT Office Visit [address] [phone] Bibi Alva NP from Last 3 Months Immunizations Immunization Administration Dates Next Due Hep B, Adult/Adol ([id number]-[id number]/RECOMBIVAX-ADULT) 09/19/2018 Hep B,adult,adjuvanted (HEPLISAV) 09/18/2024 MMR (MMR II/Priorix) 09/19/2018 Pfizer COVID vaccine, meredith QUISPE cap, 12+ 04/09/2021,08/23/2020,08/02/2020 TDAP 09/19/2018 Family History Medical History Relation Name Comments Diabetes Mellitus I Father Breast cancer Maternal Aunt Heart attack Maternal Grandfather Relation Name Status Comments Father Maternal Aunt Maternal Grandfather Social History Tobacco Use Types Packs/Day Years Used Date Smoking Tobacco: Never Passive Smoke Exposure: Never Smokeless Tobacco: Never Tobacco Cessation:Counseling Given: Not Answered Alcohol Use Standard Drinks/Week Comments Yes 0 (1 standard drink = 0.6 oz pur e alcohol) socially Social Connections Answer Date Recorded How often do you feel lonely or isolated from th ose around you? 1 05/04/2024 Financial Resource Strain Answer Date R ecorded Hard to pay for: Food 1 05/04/2024 Stress Answer Date Recorded Do you feel these kinds of stress these days? 1 05/04/2024 Physical Activity Answer Date Recorded Physical Activity 0 02/28/2024 Food Insecurity Answer Date Recorded Hard to pay for: Food 1 05/04/2024 Transportation Needs Answer Date Record ed Hard to pay for: Transportation 1 05/04/2024 Housing Stability Answer Date Recorded Housing 0 02/28/2024 Safety and Environment Answer Date Padilla rded How often does anyone, inclu ding family and friends, physically hurt you? 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 Not on file Not on file Not on file Last Filed Vital Signs Vital Sign Reading Time Taken Comments Blood Pressure 120/70 11/14/2024 1:41 PM EDT Pulse 95 11/14/2024 1:41 PM EDT Temperature 36.8 C (98.3 F) 11/14/2024 1:41 PM EDT Respiratory Rate 16 11/14/2024 1:41 PM EDT Oxygen Saturation 98% 11/14/2024 1:41 PM EDT Inhaled Oxygen Concentration - - Weight 100.2 kg (220 lb 12.8 oz) 11/14/2024 1:41 PM EDT Height 160 cm (5' 3 ) 11/14/2024 1:41 PM EDT Body Mass Index 39.11 11/14/2024 1:41 PM EDT Plan of Treatment Health Maintenance Due Date Last Done Comments HPV Screening 1994 Hepatitis C Screening 1994 Pap + HPV 1994 Syphilis Screening 12/02/2008 HIV Screening 2009 Cervical Cancer Screening 12/02/2015 Pap Smear 12/02/2015 [id number] ( season) 2023 04/09/2021, 08/23/2020, 08/02/2020 Imm-Hepatitis B (3 of 3 - 19+ 3-dose series) 11/13/2024 09/18/2024, 09/19/2018 Imm-Influenza (#1) 2024 Anxiety Screening 05/04/2025 05/04/2024 Imm-Hepatitis A (1 of 2 - Risk 2-dose series) 05/04/2025 Postponed from 2013 (Patient postponement) Relationship Safety Screening/Counseling 05/04/2025 05/04/2024 Tobacco Screening 05/04/2025 05/04/2024 Annual Wellness (Adult): Indicated (All Coverage) 11/14/2025 11/14/2024 Diabetes Screening 11/14/2025 11/14/2024, 0 11/14/2024, 05/04/2024, Additional history exists Hypertension Screening (#1) 11/14/2025 Lipid Screening 05/04/2027 05/04/2024 Imm-DTaP/Tdap/Td (2 - Td or Tdap) 09/19/2028 09/19/2018 Alcohol and Drug Screen Completed 05/04/2024 Depression Annual Screen Completed 05/04/2024 Cervical Ablation/Cold-Knife Conization Discontinued Cervical Cryotherapy Discontinued Colposcopy Discontinued Endometrial Biopsy Discontinued Excision/Leep Discontinued HPV Genotyping Discontinued Vaginal Pap Discontinued Vulvoscopy Discontinued Procedures Procedure Name Priority Date/Time Associated Diagnosis Comments QUANTIFERON-TB GOLD PLUS Routine 11/14/2024 2:05 PM EDT Screening-pulmonary TB HGA1C W/EAG Routine 11/14/2024 2:05 PM EDT Routine general medical examination at a health care facility COMPREHENSIVE METABOLIC PANEL Routine 11/14/2024 2:05 PM EDT Routine general medical examination at a health care facility MEDICATIONS SCANNED DOCUMENT 10/02/2024 3:00 AM EDT HCG URINE MCKESSON (POCT) Routine 09/18/2024 11:26 AM EDT Missed period LIPID PANEL Routine 05/04/2024 10:32 AM EST Encounter for medical examination to establish care Class 3 severe obesity due to excess calories without serious comorbidity with body mass index (BMI) of 40.0 to 44.9 in adult ([facility]) from Last 3 Months or Most Recently Relevant to Health Maintenance Results * QUANTIFERON-TB GOLD PLUS Routine (11/14/2024 2:05 PM EDT) [facility] QUANTIFERON NEGATIVE NEGATIVE 11/18/2024 5:27 AM EDT [facility] NIL 0.02 IU/mL 11/18/2024 5:27 AM EDT [facility] MITOGEN-NIL 7.53 IU/mL 11/18/2024 5:27 AM EDT [facility] TB1-NIL 0.00 IU/mL 11/18/2024 5:27 AM EDT [facility] TB2-NIL 0.00 IU/mL 11/18/2024 5:27 AM EDT [facility] Blood Blood / Unknown 11/14/2024 2 :05 PM EDT 11/15/2024 9:28 AM EDT Narrative [facility] - 11/18/2024 5:34 AM EDT FASTING:NO Negative test result. M. tuberculosis complex infection unlikely. . The Nil tube value reflects the background interferon gamma immune response of the patient's blood sample. This value has been subtracted from the patient's displayed TB and Mitogen results. . Lower than expected results with the Mitogen tube prevent false-negative Quantiferon readings by detecting a patient with a potential immune suppressive condition and/or suboptimal pre-analytical specimen handling. . The TB1 Antigen tube is coated with the M. tuberculosis-specific antigens designed to elicit responses from TB antigen primed CD4+ helper T-lymphocytes. . The TB2 Antigen tube is coated with the M. tuberculosis-specific antigens designed to elicit responses from TB antigen primed CD4+ helper and CD8+ cytotoxic T-lymphocytes. . For additional information, please refer to https://education.[employer].[facility]/faq/JSB467 (This link is being provided for informational/ educational purposes only.) . Nuha Davis [facility] LAB - BLOOD DRAW Fin al Result Performing Organization Address [facility] de Phone Number [facility] [address] [address], [employer] [address] [address] * (ABNORMAL) HGA1C W/EAG Routine (11/14/2024 2:05 PM EDT) HEMOGLOBIN A1C 6.3(H) <5.7 % 11/15/2024 8:31 AM EDT [employer] EAG (MG/DL) 134 mg/dL 11/15/2024 8:31 AM EDT [employer] EAG (MMOL/L) 7.4 mmol/L 11/15/2024 8:31 AM EDT [employer] Blood Blood / Unknown 11/14/2024 2 :05 PM EDT 11/15/2024 2:38 AM EDT Narrative [email or web address] [facility] - 11/15/2024 8:52 AM EDT FASTING:NO For someone without known diabetes, a hemoglobin A1c value between 5.7% and 6.4% is consistent with prediabetes and should be confirmed with a follow-up test. . For someone with known diabetes, a value <7% indicates that their diabetes is well controlled. A1c targets should be individualized based on duration of diabetes, age, comorbid conditions, and other considerations. . This assay result is consistent with an increased risk of diabetes. . Currently, no consensus exists regarding use of hemoglobin A1c for diagnosis of diabetes for children. . Nuha Gume-Jun [facility] - BLOOD DRAW Fin al Result Performing Organization Address [facility] Co de Phone Number [facility] [address] [address], [employer] [address] [address] * COMPREHENSIVE METABOLIC PANEL Routine (11/14/2024 2:05 PM EDT) GLUCOSE 94 65 - 139 mg/dL 11/15/2024 6:18 AM [facility] UREA NITROGEN (BUN) 10 7 - 25 mg/dL 11/15/2024 6:18 AM [facility] CREATININE (blood) 0.69 0.50 - 0.96 mg/dL 11/15/2024 6:18 AM [facility] EGFR 120 > OR = 60 mL/min/1. 73m2 11/15/2024 6:18 AM [employer] [facility] BUN/CREATININE RATIO SEE NOTE: 6 - (calc) 11/15/2024 6:18 AM [employer] [facility] SODIUM 137 135 - 146 mmol/L 11/15/2024 6:18 AM [employer] [facility] POTASSIUM 4.6 3.5 - 5.3 mmol/L 11/15/2024 6:18 AM [employer] [facility] CHLORIDE 101 98 - 110 mmol/L 11/15/2024 6:18 AM [facility] [employer] [facility] CARBON DIOXIDE 26 20 - 32 mmol/L 11/15/2024 6:18 AM [employer] [facility] CALCIUM 9.5 8.6 - 10.2 mg/dL 11/15/2024 6:18 AM [facility] PROTEIN, TOTAL 8.0 6.1 - 8.1 g/dL 11/15/2024 6:18 AM [facility] [employer] [facility] ALBUMIN 4.8 3.6 - 5.1 g/dL 11/15/2024 6:18 AM [facility] [facility] GLOBULIN 3.2 1.9 - 3.7 g/dL (calc) 11/15/2024 6:18 AM [facility] [facility] ALBUMIN/GLOBULI N RATIO 1.5 1.0 - 2.5 (calc) 11/15/2024 6:18 AM [facility] [employer] [facility] BILIRUBIN, TOTAL 0.4 0.2 - 1.2 mg/dL 11/15/2024 6:18 AM [employer] [facility] ALKALINE PHOSPHATASE 44 31 - 125 U/L 11/15/2024 6:18 AM [employer] [facility] [facility] AST 19 10 - 30 U/L 11/15/2024 6:18 AM [employer] [facility] [facility] ALT 19 6 - 29 U/L 11/15/2024 6:18 AM [employer] [facility] Blood Blood / Unknown 11/14/2024 2 :05 PM EDT 11/15/2024 4:54 AM EDT Narrative [facility] - 11/15/2024 6:19 AM EDT FASTING:NO . Non-fasting reference interval . Not Reported: BUN and Creatinine are within reference range. . Nuha Davis [facility] LAB - BLOOD DRAW Fin al Result Performing Organization Address [facility] Co de Phone Number [facility] [address] [address], [facility] [address] [address] * MEDICATIONS SCANNED DOCUMENT (10/02/2024 3:00 AM EDT) 10/02/2024 3:00 AM EDT Donta Everett MD SCAN MEDS OTHER ORDERS Final Re sult * HCG URINE MCKESSON (POCT) Urine Routine (09/18/2024 11:26 AM EDT) URINE HCG NEGATIVE NEGATIVE [facility] POCT INTERNAL CONTROL PASS PASS [facility] POCT Urine Urine specimen / Unknown 09/18/2024 11:26 AM EDT Bibi Alva PROFESSOR OF FINE [employer] LAB URINE AMBULATORY Final R esult Performing Organization Address [facility]/ZIP Co de Phone Number [facility] POCT * (ABNORMAL) LIPID PANEL (05/04/2024 10:32 AM EST) CHOLESTEROL, TOTAL 153 <200 mg/dL [facility] HDL CHOLESTEROL 40(L) > OR = 50 mg/dL [facility] TRIGLYCERIDES 113 <150 mg/dL [facility] LDL-CHOLESTEROL 92 99 mg/dL (calc) [facility] Comment: Reference range: <100 Desirable range <100 mg/dL for primary prevention; <70 mg/dL for patients with CHD or diabetic patients with > or = 2 CHD risk factors. LDL-C is now calculated using the Stephanie calculation, which is a validated novel method providing better accuracy than the Friedewald equation in the estimation of LDL-C. Allen SS et al. MIRTA. 2013;310(19): 6331-3437 (http://education.Unomy/faq/ASS157) CHOL/HDLC RATIO 3.8 <5.0 (calc) [employer] NON-HDL CHOLESTEROL 113 <130 mg/dL (calc) [employer] Comment: For patients with diabetes plus 1 major ASCVD risk factor, treating to a non-HDL-C goal of <100 mg/dL (LDL-C of <70 mg/dL) is considered a therapeutic option. Blood Blood / Unknown 05/04/2024 1 0:32 AM EST 05/04/2024 10:32 AM EST Narrative [employer] - 05/05/2024 9:02 AM EST FASTING:NO Donta Everett MD LAB - BLOOD DRAW Final Result [facility] [address] [address], [employer] [address] [place] [address] from Last 3 Months or Most Recently Relevant to Health Maintenance Insurance [employer] [facility] Member Subscriber Plan / Payer (Ef fective 2024-Present) Name:Ram Bijugraham Relation to Subscriber:Self Name:Biju Ramgraham Payer ID:[id number] (NAIC) Group ID:Not on file Type:Indemnity Address: [facility] [id number] [address]/[facility] Care Teams Counselling Psychologist Relationship Specialty Start Date End Date Donta Everett MD [address] [place] [address] PCP - General Internal Medicine 02/28/24
[2024-11-26 11:31] LABS: MANUAL DIFF FLAG NO
[2024-11-26 11:36] LABS: Hematocrit 36.8 % (37.0-47.0); Hemoglobin 12.0 g/dl (12.0-16.0); Imm Gran Abs Auto 0.02 X10*3/uL (0.00-0.03); Imm Gran Pct Auto 0.3 % (0.0-0.4); Lymphocytes Absolute Auto 1.4 X10*3/uL (1.2-4.9); Mean Corpuscular HGB Conc 32.6 g/dl (31.0-35.0); Mean Corpuscular Hemoglobin 26.5 pg (27.0-33.0); Mean Corpuscular Volume 81.4 fL (80.0-98.0); NRBC Abs Auto 0.000 X10*3/uL (0.0-0.012); NRBC Pct Auto 0.0 /100WBC (0.0-0.2); Platelet Count 263 X10*3/uL (160-400); Red Blood Count 4.52 X10*6/uL (4.20-5.50); White Blood Count 7.5 X10*3/uL (4.8-10.8)
[2024-11-26 11:45] VITALS: BP 120/68; PULSE 82; RESP 14; O2SAT 99
[2024-11-26 11:55] LABS: Alanine Aminotransferase 26 U/L (0-31); Albumin Level 4.1 g/dL (3.5-5.0); Alkaline Phosphatase 45 U/L (39-117); Anion Gap 11 (12-20); Aspartate Amino Transferase 28 U/L (5-31); Blood Urea Nitrogen 9 mg/dL (9-16); Calcium 8.1 mg/dL (8.4-10.2); Carbon Dioxide 24 mmol/L (22-29); Chloride 105 mmol/L (96-108); Creatinine Clr Calc Pharmacy 136.8; Estimated Glomerular Filt Rate > 60; Potassium 3.8 mmol/L (3.3-5.1); Sodium 136 mmol/L (135-145); Total Protein 7.0 g/dL (6.5-8.0)
[2024-11-26 12:45] VITALS: BP 120/68; PULSE 82; RESP 14; TEMP 36.9; O2SAT 99
== END 2024-11-26 12:45 | disposition home or self-care (01) ==
PROVIDERS: Physician Assistant Medical; Emergency Provider Emergency Medicine; PCP Dentist General Practice
DX: G43.919 Migraine, unspecified, intractable, without status migrainosus (principal); B34.9 Viral infection, unspecified; R74.8 Abnormal levels of other serum enzymes; E86.0 Dehydration
CPT/HCPCS: 36415; 80053; 84702; 85025; 87637; 96361; 96374; 96375; 99284; 99285; J1200; J1885